=== PATIENT | male | born 2000 | race Caucasian/White ===

== ENCOUNTER 2021-12-21 23:50 | Emergency (ER) | payer SELFPAY ==
[~2021-12-21] VITALS: Ht 167.6 cm; Wt 68.9 kg
[2021-12-21 23:50] VITALS: BP 132/68
--- NOTE | 2021-12-21 23:50 | NUR ---
BRENDAN CHENEY. TAKEN TO CHAIR A
--- NOTE | 2021-12-21 23:53 | NUR ---
Patient being evaluated by physician
--- NOTE | 2021-12-21 23:55 | NUR ---
PATIENT BIB [employer]. PATIENT EXAMINED BY DR. ESQUIVEL. PATIENT MEDICALLY CLEARED AND RELEASED IN CUSTODY IN STABLE CONDITION. ORIGINAL PRE-BOOK FORM GIVEN TO OFFICER [facility]ERT[facility] #[id number].
== END 2021-12-21 23:55 ==
LOC: MED 23:50
DX: F10.129 Alcohol abuse with intoxication, unspecified (principal); Z02.89 Encounter for other administrative examinations; Z88.0 Allergy status to penicillin; V89.2XXA Person injured in unspecified motor-vehicle accident, traffic, initial encounter; Y93.89 Activity, other specified; Y92.89 Other specified places as the place of occurrence of the external cause; Y99.8 Other external cause status
CPT/HCPCS: 99283